=== PATIENT | male | born 1985 | race Caucasian/White ===

== ENCOUNTER 2024-02-27 13:12 | Emergency (ER) | payer BC, OTHER ==
[2024-02-27 14:31] LABS: SARS-CoV-2 Antigen CONTROL BLUE LINE VIS/BG OK; SARS-CoV-2 Antigen Rapid Res Negative (Negative)
--- NOTE | 2024-02-27 14:31 | RAD REPORT ---
EXAMINATION: TWO VIEW CHEST XR CLINICAL INDICATION: COUGH TECHNIQUE: 2 views of the chest was performed. COMPARISON: 11/12/2009 FINDINGS: Patchy opacity seen in the medial left lung base retrocardiac region, likely infiltrate/pneumonia. Breana ngs are otherwise clear. The heart is normal in size. No displaced fractures evident. IMPRESSION: Patchy opacity medial left lung base retrocardiac region, likely pneumonia.
--- NOTE | 2024-02-27 15:04 | EDPHYS ---
Physician Documentation [facility] Name: Kameron Kitchen Age: 39 yrs Sex: Male : 1985 Arrival Date: 02/27/2024 Time: 13:12 Bed 9 Private MD: ED Physician Solitario Osman HPI: 02/26 14:20 This 39 yrs old Male presents to ER via Ambulatory with complaints of Congestion, dr5 Fever, Flu Symptoms. 14:20 Onset: The symptoms/episode began/occurred Started March 23, 2023. Patient is a dr5 39-year-old male with no past medical history coming in with cough, fever, flulike symptoms are started last Thursday. Patient reports 2 days of fever that resolved for 1 day. Patient states he took a full azithromycin pack with no relief. Patient also complains of sore throat.. Historical: - Allergies: 13:29 No Known Allergies; iw - Home Meds: 13:29 None [Active]; iw - PMHx: 13:29 None; iw - PSHx: 13:29 None; iw - Immunization history:: Adult Immunizations not up to date. - Infectious Disease History:: Denies. - Social history:: Smoking status: Patient denies any tobacco usage or history of. ROS: 14:20 Constitutional: as per hpi dr5 Exam: 14:20 Constitutional: This is a well developed, well nourished patient who is awake, alert, dr5 and in no acute distress. Head/Face: Normocephalic, atraumatic. ENT: Nares patent. No nasal discharge, no septal abnormalities noted. Tympanic membranes are normal and external auditory canals are clear. Oropharynx with no redness, swelling, or masses, exudates, or evidence of obstruction, uvula midline. Mucous membranes moist. Neck: Trachea midline, no thyromegaly or masses palpated, and no cervical lymphadenopathy. Supple, full range of motion without nuchal rigidity, or vertebral point tenderness. No Meningismus. Chest/axilla: Normal chest wall appearance and motion. Nontender with no deformity. No lesions are appreciated. Cardiovascular: Regular rate and rhythm with a normal S1 and S2. Normal PMI, no JVD. No pulse deficits. Respiratory: Lungs have equal breath sounds bilaterally, clear to auscultation. No rales, rhonchi or wheezes noted. No increased work of breathing, no retractions or nasal flaring. Back: No spinal tenderness. No costovertebral tenderness. Full range of motion. Skin: Warm, dry with normal turgor. Normal color with no rashes, no lesions, and no evidence of cellulitis. Neuro: Awake and alert, GCS 15, oriented to person, place, time, and situation. Cranial nerves II-XII grossly intact. Motor strength 5/5 in all extremities. Sensory grossly intact. Cerebellar exam normal. Normal gait. Vital Signs: 13: BP 111 / 79; Pulse 84; Resp 16; Temp 98.6; Pulse Ox 100% on R/A; Weight 72.57 kg; iw Height 6 ft. 0 in. ; : Body Mass Index 21.70 (72.57 kg, 182.88 cm) iw MDM: 13:26 Medical Screening Exam initiated dr5 16:23 Differential diagnosis: viral Infection, bacterial infection, URI, pneumonia. Data dr5 reviewed: vital signs, nurses notes, radiologic studies, plain films. I considered the following discharge prescriptions or medication management in the emergency department. Care significantly affected by the following Social Determinants of Health: Poor access to healthcare and/or lack of insurance, Poor access to transportation, Problems related to employment. Counseling: I had a detailed discussion with the patient and/or guardian regarding the historical points, exam findings, and any diagnostic results supporting the discharge/admit diagnosis, lab results, radiology results, the need for outpatient follow up, for definitive care, a family practitioner, to return to the emergency department if symptoms worsen or persist or if there are any questions or concerns that arise at home. ED course: Patient found to have pneumonia left middle lobe on x-ray. Will give doxycycline and amoxicillin to cover community-acquired pneumonia. Recommended increased hydration. Alternate Tylenol Motrin as needed for pain and fever. All questions answered.. 02/26 13:28 Order name: SARS RAPID; Complete Time: 15: dr5 02/26 13:28 Order name: Influenza Screen (a \T\ B); Complete Time: 15:02 dr5 02/26 13:28 Order name: Strep dr5 02/26 14:33 Order name: Throat Culture EDGA 02/26 13:28 Order name: Chest Pa And Lat (2 Views) XRAY; Complete Time: 15:02 dr5 Administered Medications: No medications were administered Disposition Summary: 02/27/24 15:03 Discharge Ordered Notes: Location: Home dr5 Condition: Stable dr5 Diagnosis - Other pneumonia, unspecified organism dr5 Followup: dr5 - With: Emergency Department - When: As needed - Reason: Worsening of condition Followup: dr5 - With: Private Physician - When: 1 - 2 days - Reason: Recheck today's complaints, Continuance of care, Re-evaluation by your physician Discharge Instructions: - Discharge Summary Sheet dr5 - Community-Acquired Pneumonia, Adult dr5 Forms: - Medication Reconciliation Form dr5 - Antibiotic Education dr5 - Patient Portal Instructions dr5 - Leadership Thank You Letter dr5 Prescriptions: - amoxicillin 500 mg Oral capsule - take 2 capsule ORAL route 3 times per day for 7 days; 42 capsule; Refills: 0, dr5 Product Selection Permitted - Doxycycline Hyclate 100 mg Oral Tablet - take 1 tablet ORAL route every 12 hours; 20 tablet; Refills: 0, Product dr5 Selection Permitted Addendum: 02/29/2024 07:40 I was immediately available for consultation during this patient's visit. I did not e c2 personally see the patient or discuss the patient with the RITA. . Signatures: Dispatcher [employer] EDKacey Denise, JULISSA RN iw Solitario Osman MD MD ec2 Dm Akhtar, DRYWALL INSTALLER-C DRYWALL INSTALLER-Cdr5 Corrections: (The following items were deleted from the chart) 02/26 13:29 13:29 SARS-COV-2 Antigen Rapid+I.LAB.BRZ ordered. EDMS EDMS 13:29 13:29 Influenza Screen (A \T\ B)+BA.LAB.BRZ ordered. EDMS EDMS 13: 13:29 Group A Streptococcus Rapid Sc+BA.LAB.BRZ ordered. EDGA EDMS
--- NOTE | 2024-02-27 15:04 | ER ---
Nurse's Notes [facility] Name: Kameron Kitchen Age: 39 yrs Sex: Male : 1985 Arrival Date: 02/27/2024 Time: 13:12 Bed 9 Private MD: Diagnosis: Other pneumonia, unspecified organism Presentation: 02/26 13:27 Chief complaint: Patient states: fever, body aches, not eating, congestion X 5 days. iw Coronavirus screen: Client presents with at least one sign or symptom that may indicate coronavirus-19. Ebola Screen: No symptoms or risks identified at this time. Initial Sepsis Screen: Does the patient meet any 2 criteria? No. Patient's initial sepsis screen is negative. Does the patient have a suspected source of infection? No. Patient's initial sepsis screen is negative. Risk Assessment: Do you want to hurt yourself or someone else? Patient reports no desire to harm self or others. Onset of symptoms was February 23, 2024. 13:27 Method Of Arrival: Ambulatory 13:27 Acuity: VINAY 4 iw Historical: - Allergies: 13:29 No Known Allergies; iw - Home Meds: 13:29 None [Active]; iw - PMHx: 13:29 None; iw - PSHx: 13:29 None; iw - Immunization history:: Adult Immunizations not up to date. - Infectious Disease History:: Denies. - Social history:: Smoking status: Patient denies any tobacco usage or history of. Screenin:16 [facility] ED Fall Risk Assessment (Adult) History of falling in the last 3 months, iw including since admission No falls in past 3 months (0 pts) Confusion or Disorientation No (0 pts) Intoxicated or Sedated No (0 pts) Impaired Gait No (0 pts) Mobility Assist Device Used No (0 pt) Altered Elimination No (0 pt) Score/Fall Risk Level 0 - 2 = Low Risk Oriented to surroundings. Abuse screen: Denies threats or abuse. Denies injuries from another. Nutritional screening: No deficits noted. Tuberculosis screening: No symptoms or risk factors identified. Assessment: 14:16 General: Appears in no apparent distress. Behavior is calm, appropriate for age. iw General: Reports fever for feeling ill for. Pain: Complains of pain in head, throat. Neuro: Level of Consciousness is awake, alert, obeys commands, Oriented to person, place, time, situation. Cardiovascular: Patient's skin is warm and dry. Respiratory: Respiratory effort is Respiratory pattern is regular, symmetrical, GI: Abdomen is non-distended. Derm: Skin is intact, is healthy with good turgor. Vital Signs: 13:27 BP 111 / 79; Pulse 84; Resp 16; Temp 98.6; Pulse Ox 100% on R/A; Weight 72.57 kg; iw Height 6 ft. 0 in. ; 13:27 Body Mass Index 21.70 (72.57 kg, 182.88 cm) iw ED Course: 13:16 Patient arrived in ED. sj2 13:16 D[facility]htar [facility]C [facility] 13:16 Solitario Osman MD is Attending Physician. dr5 13:29 Triage completed. iw 13:29 Arm band placed on. iw 13:31 Kacey Buenrostro, RN is Primary Nurse. iw 14:17 No provider procedures requiring assistance completed. Patient did not have IV access iw during this emergency room visit. 14:28 Chest Pa And Lat (2 Views) XRAY In Process Unspecified. EDMS 15:24 Patient has correct armband on for positive identification. Provided Education on: . iw Administered Medications: No medications were administered Medication: 14:16 VIS not applicable for this client. iw Outcome: 15:03 Discharge ordered by . dr5 15:23 Discharged to home ambulatory, iw 15:23 Condition: good 15:23 Discharge instructions given to patient, Instructed on discharge instructions, follow up and referral plans. Demonstrated understanding of instructions, follow-up care, medications, Prescriptions given X 2, 15:24 Patient left the ED. iw Signatures: Dispatcher [employer] EDMS Kacey Buenrostro, RN RN iw Abram Menendez sj2 Dm Akhtar FNP-C [employer] REPAIRER-Cdr5
[2024-02-27 15:29] VITALS: BP 111/79; TEMP 98.6; O2SAT 100
== END 2024-02-27 15:24 | disposition home or self-care (01) ==
LOC: ER 13:12
DX: J18.8 Other pneumonia, unspecified organism (principal); Z11.52 Encounter for screening for COVID-19
CPT/HCPCS: 36415; 71046; 87070; 87081; 87804; 87811; 99283